=== PATIENT | female | born 1960 | race Caucasian/White ===

== ENCOUNTER 2016-08-07 07:28 | Emergency (ER) | payer SELFPAY ==
[~2016-08-07] VITALS: Ht 165.1 cm; Wt 85.0 kg
[~2016-08-07 07:28] MED LIST: BENZ0.5T PO; ESCI10TA PO; FERR325T PO; OMEP40CA2 PO; SENN8.6T15 PO; SERO200T PO
[2016-08-07 07:30] VITALS: BP 136/83; PULSE 74; RESP 18; TEMP 97.8; O2SAT 95
[2016-08-07] MEDS ORDERED: BUSP10TA PO (07:46)
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
[2016-08-07 08:02] LABS: AUTOMATED NEUTROPHIL # 3.1 TH/MM3 (1.8-7.7); BASOPHIL # 0.1 TH/MM3 (0-0.2); BASOPHIL % 1.4 % (0.0-2.0); EOSINOPHIL # 0.2 TH/MM3 (0-0.4); EOSINOPHIL % 2.7 % (0.0-4.0); HEMATOCRIT 41.7 % (35.0-46.0); LYMPH % 36.3 % (9.0-44.0); LYMPHOCYTE # 2.2 TH/MM3 (1.0-4.8); MEAN CELL VOLUME 88.7 FL (80.0-100.0); MEAN CORPUSCULAR HEMOGLOBIN 29.9 PG (27.0-34.0); MEAN CORPUSCULAR HGB CONC 33.7 % (32.0-36.0); MONO % 8.4 % (0.0-8.0); NEUT % 51.2 % (16.0-70.0); PLATELET COUNT 191 TH/MM3 (150-450); RED BLOOD COUNT 4.69 MIL/MM3 (4.00-5.30); RED CELL DISTRIBUTION WIDTH 15.8 % (11.6-17.2); WHITE BLOOD COUNT 6.1 TH/MM3 (4.0-11.0)
[2016-08-07 08:05] LABS: HEMO FLAGS AUTO DIFF
--- NOTE | 2016-08-07 08:10 | RADRPT ---
EXAM DATE/TIME: 08/07/2016 08:09 [place] COMPARISON: No previous studies available for comparison. INDICATIONS : Fell this morning, pain sacrum and coccyx. MEDICAL HISTORY : None. SURGICAL HISTORY : None. ENCOUNTER: Initial ACUITY: 1 day PAIN SCORE: 8/10 LOCATION: Sacrum and coccyx. FINDINGS: Two-view examination of the sacrum and coccyx demonstrates no evidence of fracture or malalignment. The sacral ala and foramina appear symmetric and intact. The coccyx appears unremarkable. The preve rtebral soft tissues are within normal limits. CONCLUSION: No acute fracture. Yoel Garduno MD on August 07, 2016 at 8:06 Board Certified Radiologist. This report was verified electronically.
[2016-08-07 08:52] LABS: SCAN/DIFF AUTO DIFF CONFIRMED
== END 2016-08-07 08:58 | disposition home or self-care (01) ==
LOC: NEPC 07:28
DX: M53.3 Sacrococcygeal disorders, not elsewhere classified (principal); R53.1 Weakness; D64.9 Anemia, unspecified; K29.70 Gastritis, unspecified, without bleeding; W18.31XA Fall on same level due to stepping on an object, initial encounter
CPT/HCPCS: 72220; 85025; 99283